=== PATIENT | female | born 1960 | race Caucasian/White ===

== ENCOUNTER 2019-09-16 10:26 | Outpatient (CLI) | payer BC ==
--- NOTE | 2019-10-14 09:17 | MMO ---
Bilateral MAMMO Bilat Screen [facility]. CLINICAL HISTORY: Patient is 58 years old and is seen for screening. The patient has no family history of breast cancer. The patient has no personal history of cancer. VIEWS: The views performed were: bilateral craniocaudal with tomosynthesis and bilateral mediolateral oblique with tomosynthesis. FILMS COMPARED: The present examination has been compared to a prior imaging study performed at [facility] on 08/02/2006. This study has been interpreted with the assistance of computer-aided detection. MAMMOGRAM FINDINGS: There are scattered fibroglandular densities. There are stable calcifications seen in the central region of the right breast. There are no suspicious masses, suspicious calcifications, or new areas of architectural distortion. IMPRESSION: THERE IS NO MAMMOGRAPHIC EVIDENCE OF MALIGNANCY. A ROUTINE FOLLOW-UP MAMMOGRAM IN 1 YEAR IS RECOMMENDED. THE RESULTS OF THIS EXAM WERE SENT TO THE PATIENT. ACR BI-RADS Category 2 - Benign finding MAMMOGRAPHY NOTE: 1. A negative mammogram report should not delay a biopsy if a dominant of clinically suspicious mass is present. 2. Approximately 10% to 15% of breast cancers are not detected by mammography. 3. Adenosis and dense breasts may obscure an underlying neoplasm. Reported by: MADDIE ZARATE MD Electonically Signed: [id number]
== END 2019-09-16 10:27 | disposition home or self-care (01) ==
LOC: BICMAMMO 10:26
PROVIDERS: ATTEND Family Medicine
DX: Z12.31 Encounter for screening mammogram for malignant neoplasm of breast (principal)
CPT/HCPCS: 77063; 77067

== ENCOUNTER 2019-11-20 09:40 | Outpatient (CLI) | payer BC ==
--- NOTE | 2019-11-20 10:07 | ULT ---
ULTRASOUND ABDOMEN: HISTORY: Abnormal liver function tests. FINDINGS: The liver demonstrates increased echogenicity consistent with fatty infiltration and no evidence of f ocal mass or abnormal biliary ductal dilatation. The spleen is enlarged measuring 14.6 cm in length. The gallbladder, pancreas, kidneys and visualized portions of the aorta and IVC appear normal. The co mmon duct measures 6mm in diameter. No free fluid is seen. IMPRESSION: 1. Fatty liver 2. Splenomegaly
== END 2019-11-20 09:41 | disposition home or self-care (01) ==
LOC: BICULT 09:40
PROVIDERS: ATTEND Internal Medicine Gastroenterology
DX: R89.0 Abnormal level of enzymes in specimens from other organs, systems and tissues (principal); K76.0 Fatty (change of) liver, not elsewhere classified; R16.1 Splenomegaly, not elsewhere classified
CPT/HCPCS: 36415; 82103; 82104; 82105; 82390; 82977; 83516; 83540; 83550; 86038; 86225; 93975

== ENCOUNTER 2022-12-29 12:42 | Outpatient (CLI) | payer BC | END 2022-12-29 12:43 | disposition home or self-care (01) | LOC: BICMAMMO 12:42 | PROVIDERS: ATTEND Physician Assistant | DX: Z12.31 Encounter for screening mammogram for malignant neoplasm of breast (principal) | CPT/HCPCS: 77063; 77067 ==